=== PATIENT | male | born 1965 | race Caucasian/White ===

== ENCOUNTER 2020-04-23 15:33 | Emergency (ER) | payer OTHER ==
[~2020-04-23] VITALS: Ht 175.3 cm; Wt 99.8 kg
[~2020-04-23 15:33] MED LIST: ACETAMINOPHEN-1 EAC1 PO; NOHOMEMEDICATIONS; NORCO 5-325 TA1 EACH PO; ZOFRAN4 MG PO
[2020-04-23 16:45] LABS: URINE BILIRUBIN NEGATIVE (Negative); URINE BLOOD 3+ (Negative); URINE CLARITY CLEAR; URINE COLOR YELLOW; URINE GLUCOSE-RANDOM NEGATIVE (Negative); URINE KETONES NEGATIVE (Negative); URINE LEUKOCYTES-REFLEX NEGATIVE (Negative); URINE NITRITE-REFLEX NEGATIVE (Negative); URINE PROTEIN 2+ (Negative); URINE SPECIFIC GRAVITY >= 1.030 (1.005-1.030); URINE UROBILINOGEN 0.2 E.U./dl (0.2-1.0)
[2020-04-23 16:52] LABS: CALCIUM 9.4 mg/dL (8.5-10.1); CREATININE 1.7 mg/dL (0.6-1.3); POTASSIUM 4.1 mmol/L (3.5-5.1)
[2020-04-23 17:14] LABS: URINE RBC >20 Many /HPF (0-2)
[2020-04-23 17:15] LABS: BACTERIA-REFLEX 1-9 Few /HPF (None Seen); HYALINE CASTS 4-10 Moderate /LPF (None Seen); SQUAMOUS 4-10 Moderate /LPF (0-3)
[2020-04-23 17:16] LABS: CRYSTALS None Seen /LPF (None Seen); MUCUS None Seen strn/LPF (None Seen); URINE WBC-REFLEX 0-5 Rare /HPF (0-5)
[2020-04-23 18:43] VITALS: BP 166/94
== END 2020-04-23 18:43 | disposition short-term general hospital (02) ==
LOC: M.ERS 15:33
PROVIDERS: Emergency Medicine Emergency Medical Services
DX: N20.0 Calculus of kidney (principal); I10 Essential (primary) hypertension; Z87.442 Personal history of urinary calculi; Z91.048 Other nonmedicinal substance allergy status

== ENCOUNTER 2020-08-13 23:19 | Emergency (ER) | payer OTHER ==
[~2020-08-13] VITALS: Ht 175.3 cm; Wt 104.3 kg
[2020-08-13] MEDS ORDERED: BLOOD PRESSURE MED (23:29)
[2020-08-14] MEDS ORDERED: HYDROCODON-ACE1 EAC8 PO (01:11)
[2020-08-14] MEDS ORDERED: MEDROLDOSEPACK PO (01:11)
[2020-08-14 01:33] VITALS: BP 162/98
--- NOTE | 2020-08-16 12:15 | EKG ---
[place] [address] ELECTROCARDIOGRAM REPORT Name: DINA HORTON Room: [facility]#: [id number] Admission: 08/13/20 Attend Phys: Discharge: 08/14/20 Date of : 63 Date of Service: 08/13/202332 Report #: [id number] THIS REPORT FOR: //name// [facility] ED Test Date: 2020-08-13 Test Time: 23:33:51 Pat Name: DINA HORTON Department: Room: Gender: Cash Applications Coordinator: [place] : 1965 Requested By: Gwen Saravia Order Number: [id number] Burton MD: Álvaro Crum Measurements Intervals [place] Rate: 66 P: 61 NV: 172 QRS: 57 QRSD: 105 T: 95 QT: 396 QTc: 415 Interpretive Statements Sinus rhythm Left atrial enlargement Nonspecific T abnrm, anterolateral leads No previous ECG available for comparison Electronically Signed On 08-16-2020 12:14:52 VP [employer] by Álvaro Crum [email or web address] <ELECTRONICALLY SIGNED> By: Álvaro Crum MD, [facility] 08/16/20 1214 32 32 Álvaro Crum MD, FACC /EPI
== END 2020-08-14 01:33 | disposition home or self-care (01) ==
LOC: M.ERS 23:19
DX: M54.12 Radiculopathy, cervical region (principal)